=== PATIENT | male | born 1995 | race Caucasian/White ===

== ENCOUNTER 2022-06-04 14:38 | Emergency (ER) | payer MEDICAID ==
[~2022-06-04] VITALS: Ht 180.3 cm; Wt 90.9 kg
[2022-06-04 15:18] LABS: COVID AG,FIA SOURCE NASAL SWAB
[2022-06-04] MEDS ORDERED: BENZ-227 PO (16:58)
[2022-06-04 17:07] VITALS: BP 110/79
== END 2022-06-04 17:08 | disposition home or self-care (01) ==
LOC: EMS 14:56
DX: J06.9 Acute upper respiratory infection, unspecified (principal); F17.210 Nicotine dependence, cigarettes, uncomplicated; Z20.822 Contact with and (suspected) exposure to COVID-19
CPT/HCPCS: 99283